=== PATIENT | female | born 1975 | race Caucasian/White ===

== ENCOUNTER 2016-12-03 23:53 | Emergency (ER) | payer OTHER, MEDICAID ==
[~2016-12-03] VITALS: Ht 165.1 cm; Wt 72.7 kg
[~2016-12-03 23:53] MED LIST: ACYCLOVIR800 MG PO; ADVIL200 MG OR; AMOXICILLIN500 MG PO; AMOXICILLIN875 MG OR; ATIVAN0.5 MG PO; BACLOFEN10 MG PO; BACTRIM DS1 TAB PO; BENTYL10 MG PO; BENZTROPINE1 MG OR; CEPHALEXIN500 MG OR; CEPHALEXIN500 MG PO; CIPRO500 MG OR; CIPROFLOXACN500 MG PO; CYCLOBENZAPR10 MG PO; DIABETA5 MG; FIORICET PO; FLEXERIL PO; FLEXERIL10 MG PO; FLUOXETINE40 MG PO; GLYBURIDE5 MG PO; IBUPROFEN600 MG PO; LEVAQUIN750 MG OR; LISINOPRIL10 MG PO; LISINOPRIL2.5 MG PO; LISINOPRIL20 M1; LISINOPRIL20 MG PO; LOMOTIL2.5 MG PO; LORTAB 1010 MG PO; LORTAB 5 OR; LORTAB 7.5-3251 TAB PO; LORTAB5 OR; MEDDOSEPAK OR; METFORMIN500 M1 PO; METFORMIN500 MG PO; MOBIC7.5 MG PO; NAPROSYN500 MG PO; NO HOME MEDICATIONS; NO HOME MEDS; ONDANSETRON4 MG PO; RISPERDAL1 M1 OR; ROBAXIN-750750 MG PO; TRAMADOL HCL50 MG PO; TRAZODONE50 MG PO; TYLENOL325 M1 RE; ULTRAM50 M1 PO; ULTRAM50 MG OR; ZANAFLEX2 MG PO; ZOFRAN ODT4 MG OR; ZOFRAN ODT4 MG PO; ZOVIRAX400 MG OR
[2016-12-04] MEDS ORDERED: PERCOCET 5/325M1 TAB PO (01:56)
[2016-12-04 02:25] VITALS: BP 138/74
== END 2016-12-04 02:25 | disposition home or self-care (01) | DRG 552 ==
LOC: ED 23:53
DX: S16.1XXA Strain of muscle, fascia and tendon at neck level, initial encounter (principal); E11.65 Type 2 diabetes mellitus with hyperglycemia; I10 Essential (primary) hypertension; S90.02XA Contusion of left ankle, initial encounter; F17.210 Nicotine dependence, cigarettes, uncomplicated; V49.40XA Driver injured in collision with unspecified motor vehicles in traffic accident, initial encounter; Z91.14 Patient's other noncompliance with medication regimen

== ENCOUNTER 2016-12-22 14:32 | Emergency (ER) | payer OTHER, MEDICAID ==
[~2016-12-22] VITALS: Ht 165.1 cm; Wt 72.7 kg
[~2016-12-22 14:32] MED LIST changes: +PERCOCET 5/325M1 TAB PO
[2016-12-22] MEDS ORDERED: ZOFRAN4 MG/TAB PO (16:58)
[2016-12-22 17:05] VITALS: BP 129/74
== END 2016-12-22 17:05 | disposition home or self-care (01) | DRG 392 ==
LOC: ED 14:32
DX: K52.9 Noninfective gastroenteritis and colitis, unspecified (principal); R11.2 Nausea with vomiting, unspecified

== ENCOUNTER 2017-01-05 12:10 | Emergency (ER) | payer OTHER, MEDICAID ==
[~2017-01-05] VITALS: Ht 165.1 cm; Wt 75.0 kg
[~2017-01-05 12:10] MED LIST changes: +ZOFRAN4 MG/TAB PO
[2017-01-05] MEDS ORDERED: MOTRIN800 MG PO (14:43)
[2017-01-05] MEDS ORDERED: PERCOCET 5/325M1 TAB PO (14:43)
[2017-01-05 14:54] VITALS: BP 142/97
== END 2017-01-05 14:55 | disposition home or self-care (01) | DRG 552 ==
LOC: ED 12:10
DX: M54.31 Sciatica, right side (principal); I10 Essential (primary) hypertension; M48.07 Spinal stenosis, lumbosacral region; E11.9 Type 2 diabetes mellitus without complications; F17.210 Nicotine dependence, cigarettes, uncomplicated

== ENCOUNTER 2017-02-01 09:19 | Emergency (ER) | payer OTHER, MEDICAID ==
[~2017-02-01] VITALS: Ht 165.1 cm; Wt 75.0 kg
[~2017-02-01 09:19] MED LIST changes: +MOTRIN800 MG PO
[2017-02-01] MEDS ORDERED: PREMARIN0.3 MG PO (09:28)
[2017-02-01] MEDS ORDERED: CELEBREX100 M1 PO (09:28)
[2017-02-01] MEDS ORDERED: GABAPENTIN300 M2 PO (09:57)
[2017-02-01] MEDS ORDERED: PERCOCET 5/325M1 TAB PO (09:57)
[2017-02-01 10:10] VITALS: BP 148/88
== END 2017-02-01 10:10 | disposition home or self-care (01) | DRG 556 ==
LOC: ED 09:19
DX: M79.652 Pain in left thigh (principal); I10 Essential (primary) hypertension; E11.9 Type 2 diabetes mellitus without complications; G89.29 Other chronic pain; M54.9 Dorsalgia, unspecified; F17.210 Nicotine dependence, cigarettes, uncomplicated

== ENCOUNTER 2017-04-10 10:40 | Emergency (ER) | payer OTHER, MEDICAID ==
[~2017-04-10] VITALS: Ht 165.1 cm; Wt 65.0 kg
[~2017-04-10 10:40] MED LIST changes: +CELEBREX100 M1 PO; +GABAPENTIN300 M2 PO; +PREMARIN0.3 MG PO
[2017-04-10 11:13] LABS: URINE BILIRUBIN - DIPSTICK NEGATIVE (NEGATIVE); URINE BLOOD DIPSTICK SMALL (NEGATIVE); URINE CLARITY CLOUDY; URINE COLOR YELLOW; URINE GLUCOSE - DIPSTICK >=1000 mg/dL (NEGATIVE); URINE KETONE TRACE mg/dL (NEGATIVE); URINE LEUK ESTERASE TRACE (NEGATIVE); URINE NITRITE - DIPSTICK POSITIVE (Negative); URINE PROTEIN - DIPSTICK NEGATIVE (NEG-TRACE); URINE SPECIFIC GRAVITY 1.025; URINE UROBILINOGEN - DIPSTICK 0.2 E.U./dL (0.2)
[2017-04-10 11:25] LABS: URINE BACTERIA MODERATE hpf; URINE RBC 50-100 RBC/hpf (0-5); URINE SQUAMOUS EPITHELIAL CELL FEW EPI/hpf (0-FEW)
[2017-04-10] MEDS ORDERED: CEPHALEXIN500 MG PO (11:40)
[2017-04-10 11:45] VITALS: BP 116/72
== END 2017-04-10 11:45 | disposition home or self-care (01) | DRG 690 ==
LOC: ED 10:40
PROVIDERS: Emergency Medicine
DX: N39.0 Urinary tract infection, site not specified (principal); I10 Essential (primary) hypertension; E11.9 Type 2 diabetes mellitus without complications; A60.00 Herpesviral infection of urogenital system, unspecified; B95.61 Methicillin susceptible Staphylococcus aureus infection as the cause of diseases classified elsewhere; G89.29 Other chronic pain; M54.9 Dorsalgia, unspecified; F17.210 Nicotine dependence, cigarettes, uncomplicated

== ENCOUNTER 2017-04-15 18:58 | Emergency (ER) | payer OTHER, MEDICAID ==
[~2017-04-15] VITALS: Ht 165.1 cm; Wt 55.0 kg
[2017-04-15 20:27] LABS: HEMOGLOBIN 15.7 g/dl (12.0-16.0); IMMATURE GRANULOCYTES 0.2 % (0.0-1.0); MEAN CELL VOLUME 84.9 fL CALC (80.0-100.0); MEAN CORPUSCULAR HGB 30.3 pG CALC (26.0-32.0); MEAN CORPUSCULAR HGB CONC 35.7 g/L CALC (32.0-36.0); NEUT# 6.43 thou/uL (2.00-7.15); RED BLOOD COUNT 5.18 mill/uL (4.20-5.60); RED CELL DISTRI WIDTH 12.1 % (11.5-15.5)
[2017-04-15 20:42] LABS: URINE BILIRUBIN - DIPSTICK NEGATIVE (NEGATIVE); URINE BLOOD DIPSTICK NEGATIVE (NEGATIVE); URINE CLARITY CLEAR; URINE COLOR YELLOW; URINE GLUCOSE - DIPSTICK >=1000 mg/dL (NEGATIVE); URINE KETONE NEGATIVE (NEGATIVE); URINE LEUK ESTERASE NEGATIVE (NEGATIVE); URINE NITRITE - DIPSTICK NEGATIVE (Negative); URINE PH 5.5 (4.5-8.0); URINE PROTEIN - DIPSTICK NEGATIVE (NEG-TRACE); URINE UROBILINOGEN - DIPSTICK 0.2 E.U./dL (0.2)
[2017-04-15 20:58] LABS: ALBUMIN 4.4 g/dL (3.2-5.0); ALKALINE PHOSPHATASE 99 u/l (38-126); ANION GAP 16 (6-22 (CALC)); BILIRUBIN, TOTAL 1.1 mg/dL (0.0-1.4); BUN 10 mg/dL (7-17); BUN/CREATININE RATIO 14 (12-20 (CALC)); CALCIUM 9.9 mg/dL (8.4-10.2); CARBON DIOXIDE 29 mmol/l (22-30); CHLORIDE 98 mmol/l (95-108); CREATININE 0.7 mg/dL (0.5-1.0); GFR > 60 ML/MIN (>=60 (CALC)); GFR FOR AFR.AMER. > 60 ML/MIN (>=60 (CALC)); GLUCOSE 400 mg/dL (65-105); POTASSIUM 3.8 mmol/l (3.5-5.1); SGOT/AST 17 u/l (14-36); SGPT/ALT 39 u/l (9-52); SODIUM 139 mmol/l (137-146); TOTAL PROTEIN 7.5 g/dL (6.3-8.2)
[2017-04-15 22:33] VITALS: BP 135/79
== END 2017-04-15 22:33 | disposition short-term general hospital (02) | DRG 93 ==
LOC: ED 18:58
PROVIDERS: Emergency Medicine
DX: R20.0 Anesthesia of skin (principal); M47.9 Spondylosis, unspecified; R53.1 Weakness; Z87.898 Personal history of other specified conditions

== ENCOUNTER 2017-08-15 01:18 | Emergency (ER) | payer OTHER, MEDICAID ==
[~2017-08-15] VITALS: Ht 182.9 cm; Wt 75.8 kg
[2017-08-15] MEDS ORDERED: GABAPENTIN100 MG PO (01:43)
[2017-08-15] MEDS ORDERED: MOTRIN200 MG PO (01:44)
[2017-08-15] MEDS ORDERED: HYDROCO/APAP1 TA9 PO (01:45)
[2017-08-15 02:16] LABS: URINE BILIRUBIN - DIPSTICK NEGATIVE (NEGATIVE); URINE BLOOD DIPSTICK NEGATIVE (NEGATIVE); URINE CLARITY CLEAR; URINE COLOR YELLOW; URINE GLUCOSE - DIPSTICK >=1000 mg/dL (NEGATIVE); URINE KETONE NEGATIVE (NEGATIVE); URINE LEUK ESTERASE NEGATIVE (NEGATIVE); URINE NITRITE - DIPSTICK NEGATIVE (Negative); URINE PROTEIN - DIPSTICK NEGATIVE (NEG-TRACE); URINE UROBILINOGEN - DIPSTICK 0.2 E.U./dL (0.2)
[2017-08-15 02:18] LABS: HEMATOCRIT 43.9 % (37.0-47.0); HEMOGLOBIN 15.8 g/dl (12.0-16.0); IMMATURE GRANULOCYTES 0.3 % (0.0-1.0); MEAN CELL VOLUME 84.9 fL CALC (80.0-100.0); MEAN CORPUSCULAR HGB 30.6 pG CALC (26.0-32.0); NEUT# 5.41 thou/uL (2.00-7.15); RED BLOOD COUNT 5.17 mill/uL (4.20-5.60)
[2017-08-15 02:28] LABS: ALBUMIN 4.4 g/dL (3.2-5.0); ALKALINE PHOSPHATASE 163 u/l (38-126); ANION GAP 18 (6-22 (CALC)); BILIRUBIN, TOTAL 0.5 mg/dL (0.0-1.4); BUN 13 mg/dL (7-17); BUN/CREATININE RATIO 24 (12-20 (CALC)); CALCIUM 9.9 mg/dL (8.4-10.2); CARBON DIOXIDE 22 mmol/l (22-30); CHLORIDE 102 mmol/l (95-108); CREATININE 0.5 mg/dL (0.5-1.0); GFR > 60 ML/MIN (>=60 (CALC)); GFR FOR AFR.AMER. > 60 ML/MIN (>=60 (CALC)); POTASSIUM 4.1 mmol/l (3.5-5.1); SGOT/AST 22 u/l (14-36); SGPT/ALT 39 u/l (9-52); SODIUM 138 mmol/l (137-146); TOTAL PROTEIN 7.2 g/dL (6.3-8.2)
[2017-08-15 02:32] LABS: GLUCOSE 485 mg/dL (65-105)
[2017-08-15] MEDS ORDERED: FLEXERIL PO (13:19)
[2017-08-15] MEDS ORDERED: MOTRIN800 MG PO (13:19)
[2017-08-15 13:34] VITALS: BP 149/95
== END 2017-08-15 13:57 | disposition home or self-care (01) | DRG 552 ==
LOC: ED 01:18
PROVIDERS: Emergency Medicine
DX: M54.6 Pain in thoracic spine (principal); M62.830 Muscle spasm of back; R06.02 Shortness of breath

== ENCOUNTER 2017-11-16 17:22 | Emergency (ER) | payer OTHER ==
[~2017-11-16] VITALS: Ht 165.1 cm; Wt 74.8 kg
[~2017-11-16 17:22] MED LIST changes: +GABAPENTIN100 MG PO; +HYDROCO/APAP1 TA9 PO; +MOTRIN200 MG PO
[2017-11-16] MEDS ORDERED: MOTRIN400 MG PO (18:08)
[2017-11-16] MEDS ORDERED: ULTRAM50 M1 PO (18:46)
[2017-11-16 18:48] VITALS: BP 134/88
== END 2017-11-16 18:55 | disposition home or self-care (01) | DRG 563 ==
LOC: ED 17:22
PROC: 2W3CX1Z Immobilization of Right Lower Arm using Splint (ICD-10-PCS; principal; 2017-11-16)
DX: S62.001A Unspecified fracture of navicular [scaphoid] bone of right wrist, initial encounter for closed fracture (principal); F17.210 Nicotine dependence, cigarettes, uncomplicated; X58.XXXA Exposure to other specified factors, initial encounter

== ENCOUNTER 2017-11-24 07:27 | Emergency (ER) | payer OTHER ==
[~2017-11-24] VITALS: Ht 165.1 cm; Wt 75.0 kg
[~2017-11-24 07:27] MED LIST changes: +MOTRIN400 MG PO
[2017-11-24 07:59] VITALS: BP 148/90
== END 2017-11-24 07:59 | disposition home or self-care (01) | DRG 561 ==
LOC: ED 07:27
PROC: 2W3JX1Z Immobilization of Right Finger using Splint (ICD-10-PCS; principal; 2017-11-24)
DX: S62.001D Unspecified fracture of navicular [scaphoid] bone of right wrist, subsequent encounter for fracture with routine healing (principal)

== ENCOUNTER 2018-06-19 18:01 | Emergency (ER) | payer OTHER ==
[~2018-06-19] VITALS: Ht 165.1 cm; Wt 70.0 kg
[2018-06-19] MEDS ORDERED: CARVEDILOL6.25 MG PO (18:13)
[2018-06-19] MEDS ORDERED: LISINOPRIL20 MG PO (18:14)
[2018-06-19] MEDS ORDERED: TRULICITY0.75 MG/0. SC (18:15)
[2018-06-19] MEDS ORDERED: BACTROBAN TOP (19:23)
[2018-06-19 19:51] VITALS: BP 138/72
== END 2018-06-19 19:52 | disposition home or self-care (01) | DRG 607 ==
LOC: ED 18:01
DX: S30.861A Insect bite (nonvenomous) of abdominal wall, initial encounter (principal); S40.862A Insect bite (nonvenomous) of left upper arm, initial encounter; S40.861A Insect bite (nonvenomous) of right upper arm, initial encounter; L29.9 Pruritus, unspecified; W57.XXXA Bitten or stung by nonvenomous insect and other nonvenomous arthropods, initial encounter; Y93.89 Activity, other specified; Y92.009 Unspecified place in unspecified non-institutional (private) residence as the place of occurrence of the external cause

== ENCOUNTER 2018-06-27 10:11 | Emergency (ER) | payer OTHER ==
[~2018-06-27] VITALS: Ht 165.1 cm; Wt 70.5 kg
[~2018-06-27 10:11] MED LIST changes: +BACTROBAN TOP; +CARVEDILOL6.25 MG PO; +TRULICITY0.75 MG/0. SC
[2018-06-27] MEDS ORDERED: LISINOP/HCTZ1 TA1 PO (11:10)
[2018-06-27] MEDS ORDERED: CRESTOR20 MG PO (11:11)
[2018-06-27] MEDS ORDERED: ASPIRIN81 MG PO (11:12)
[2018-06-27 12:03] LABS: HEMATOCRIT 45.8 % (37.0-47.0); HEMOGLOBIN 16.4 g/dl (12.0-16.0); IMMATURE GRANULOCYTES 0.4 % (0.0-5.0); MEAN CELL VOLUME 85.1 fL CALC (80.0-100.0); MEAN CORPUSCULAR HGB 30.5 pG CALC (26.0-32.0); MEAN CORPUSCULAR HGB CONC 35.8 g/L CALC (32.0-36.0); NEUT# 5.63 thou/uL (2.00-7.15); RED BLOOD COUNT 5.38 mill/uL (4.20-5.60); RED CELL DISTRI WIDTH 11.9 % (11.5-15.5)
[2018-06-27 12:05] LABS: INFLUENZA A POSITIVE (NONE DETECT); INFLUENZA B NONE DETECTED (NONE DETECT)
[2018-06-27 12:14] LABS: ALBUMIN 4.3 g/dL (3.2-5.0); ALKALINE PHOSPHATASE 82 u/l (38-126); ANION GAP 17 (6-22 (CALC)); BILIRUBIN, TOTAL 0.7 mg/dL (0.0-1.4); BUN 18 mg/dL (7-17); BUN/CREATININE RATIO 28 (12-20 (CALC)); CARBON DIOXIDE 28 mmol/l (22-30); CHLORIDE 95 mmol/l (95-108); CREATININE 0.6 mg/dL (0.5-1.0); GFR > 60 ML/MIN (>=60 (CALC)); GFR FOR AFR.AMER. > 60 ML/MIN (>=60 (CALC)); POTASSIUM 4.1 mmol/l (3.5-5.1); SGOT/AST 26 u/l (14-36); SODIUM 136 mmol/l (137-146); TOTAL PROTEIN 7.2 g/dL (6.3-8.2)
[2018-06-27] MEDS ORDERED: TAM75CAP PO (12:21)
[2018-06-27] MEDS ORDERED: ONDANSETRON4 MG PO (12:21)
[2018-06-27 13:21] VITALS: BP 114/69
== END 2018-06-27 13:21 | disposition home or self-care (01) | DRG 195 ==
LOC: ED 10:11
PROVIDERS: Emergency Medicine
DX: J10.1 Influenza due to other identified influenza virus with other respiratory manifestations (principal); R11.2 Nausea with vomiting, unspecified; R51 Headache; R50.9 Fever, unspecified

== ENCOUNTER 2018-11-19 16:15 | Emergency (ER) | payer OTHER ==
[~2018-11-19] VITALS: Ht 165.1 cm; Wt 70.0 kg
[~2018-11-19 16:15] MED LIST changes: +ASPIRIN81 MG PO; +CRESTOR20 MG PO; +LISINOP/HCTZ1 TA1 PO; +TAM75CAP PO
[2018-11-19] MEDS ORDERED: ENTRESTO 97-1031 TAB PO (16:40)
[2018-11-19] MEDS ORDERED: TOPROL XL25 M1 PO (16:42)
[2018-11-19 17:17] LABS: IMMATURE GRANULOCYTES 0.1 % (0.0-5.0); MEAN CELL VOLUME 84.2 fL CALC (80.0-100.0); MEAN CORPUSCULAR HGB 29.4 pG CALC (26.0-32.0); MEAN CORPUSCULAR HGB CONC 34.9 g/L CALC (32.0-36.0); NEUT# 5.31 thou/uL (2.00-7.15); RED BLOOD COUNT 4.87 mill/uL (4.20-5.60); RED CELL DISTRI WIDTH 12.5 % (11.5-15.5)
[2018-11-19 17:18] LABS: HEMOGLOBIN 14.3 g/dl (12.0-16.0)
[2018-11-19 17:35] LABS: ANION GAP 14 (6-22 (CALC)); BUN 12 mg/dL (7-17); BUN/CREATININE RATIO 31 (12-20 (CALC)); CARBON DIOXIDE 25 mmol/l (22-30); CHLORIDE 103 mmol/l (95-108); CREATININE 0.4 mg/dL (0.5-1.0); GFR > 60 ML/MIN (>=60 (CALC)); GFR FOR AFR.AMER. > 60 ML/MIN (>=60 (CALC)); POTASSIUM 3.8 mmol/l (3.5-5.1); SODIUM 138 mmol/l (137-146)
[2018-11-19 18:43] LABS: URINE BILIRUBIN - DIPSTICK NEGATIVE (NEGATIVE); URINE BLOOD DIPSTICK NEGATIVE (NEGATIVE); URINE COLOR YELLOW; URINE GLUCOSE - DIPSTICK >=1000 mg/dL (NEGATIVE); URINE KETONE NEGATIVE (NEGATIVE); URINE LEUK ESTERASE NEGATIVE (NEGATIVE); URINE NITRITE - DIPSTICK NEGATIVE (Negative); URINE PH 5.5 (4.5-8.0); URINE PROTEIN - DIPSTICK NEGATIVE (NEG-TRACE); URINE UROBILINOGEN - DIPSTICK 0.2 E.U./dL (0.2)
[2018-11-19 19:00] VITALS: BP 130/72
== END 2018-11-19 19:00 | disposition home or self-care (01) | DRG 948 ==
LOC: ED 16:15
PROVIDERS: Family Medicine
DX: R53.83 Other fatigue (principal); I42.9 Cardiomyopathy, unspecified; R94.31 Abnormal electrocardiogram [ECG] [EKG]; R60.0 Localized edema; R00.2 Palpitations; Z95.0 Presence of cardiac pacemaker; I10 Essential (primary) hypertension

== ENCOUNTER 2018-11-25 09:56 | Emergency (ER) | payer OTHER ==
[~2018-11-25] VITALS: Ht 165.1 cm; Wt 70.0 kg
[~2018-11-25 09:56] MED LIST changes: +ENTRESTO 97-1031 TAB PO; +TOPROL XL25 M1 PO
[2018-11-25] MEDS ORDERED: CARVEDILOL6.25 MG PO (10:12)
[2018-11-25] MEDS ORDERED: HYDROCORT2.52 EX (10:20)
[2018-11-25 10:25] VITALS: BP 138/97
== END 2018-11-25 10:25 | disposition home or self-care (01) | DRG 607 ==
LOC: ED 09:56
DX: L25.9 Unspecified contact dermatitis, unspecified cause (principal); E11.9 Type 2 diabetes mellitus without complications; I10 Essential (primary) hypertension

== ENCOUNTER 2020-07-24 11:36 | Emergency (ER) | payer OTHER ==
[~2020-07-24] VITALS: Ht 165.1 cm; Wt 68.2 kg
[~2020-07-24 11:36] MED LIST changes: +HYDROCORT2.52 EX
[2020-07-24 12:04] LABS: HEMOGLOBIN 15.3 g/dl (12.0-16.0); IMMATURE GRANULOCYTES 0.2 % (0.0-5.0); MEAN CELL VOLUME 83.7 fL CALC (80.0-100.0); MEAN CORPUSCULAR HGB 29.8 pG CALC (26.0-32.0); MEAN CORPUSCULAR HGB CONC 35.6 g/dL CAL (32.0-36.0); NEUT# 3.93 thou/uL (2.00-7.15); RED BLOOD COUNT 5.14 mill/uL (4.20-5.60); RED CELL DISTRI WIDTH 12.2 % (11.5-15.5)
[2020-07-24 12:24] LABS: ACT PARTIAL THROMBO TIME 22.4 SECONDS (20.0-32.5); INTERNATIONAL NORMALIZED RATIO 0.9 RATIO (0.7-1.3); PROTHROMBIN TIME 9.4 SECONDS (9.0-12.5)
[2020-07-24 13:07] LABS: ALBUMIN 4.1 g/dL (3.2-5.0); ALKALINE PHOSPHATASE 104 u/l (38-126); ANION GAP 13 (6-22 (CALC)); BILIRUBIN, TOTAL 0.6 mg/dL (0.0-1.4); BUN 16 mg/dL (7-17); BUN/CREATININE RATIO 36 (12-20 (CALC)); CARBON DIOXIDE 25 mmol/l (22-30); CHLORIDE 105 mmol/l (95-108); CREATININE 0.4 mg/dL (0.5-1.0); GFR > 60 ML/MIN (>=60 (CALC)); GFR FOR AFR.AMER. > 60 ML/MIN (>=60 (CALC)); SGOT/AST 20 u/l (14-36); SODIUM 138 mmol/l (137-146); TOTAL PROTEIN 6.8 g/dL (6.3-8.2)
[2020-07-24 18:08] VITALS: BP 139/90
== END 2020-07-24 18:09 | disposition short-term general hospital (02) | DRG 309 ==
LOC: ED 11:36
PROVIDERS: Student in an Organized Health Care Education/Training Program
DX: I47.1 Supraventricular tachycardia (principal); I42.8 Other cardiomyopathies; E11.9 Type 2 diabetes mellitus without complications; I10 Essential (primary) hypertension; Z95.810 Presence of automatic (implantable) cardiac defibrillator; Z20.828 Contact with and (suspected) exposure to other viral communicable diseases

== ENCOUNTER 2021-02-13 22:44 | Inpatient (IN) | payer OTHER ==
[~2021-02-13] VITALS: Ht 165.1 cm; Wt 64.0 kg
[2021-02-13 23:19] LABS: HEMATOCRIT 45.7 % (37.0-47.0); HEMOGLOBIN 15.6 g/dl (12.0-16.0); IMMATURE GRANULOCYTES 0.5 % (0.0-5.0); MEAN CELL VOLUME 86.1 fL CALC (80.0-100.0); MEAN CORPUSCULAR HGB 29.4 pG CALC (26.0-32.0); MEAN CORPUSCULAR HGB CONC 34.1 g/dL CAL (32.0-36.0); NEUT# 7.83 thou/uL (2.00-7.15); RED BLOOD COUNT 5.31 mill/uL (4.20-5.60); RED CELL DISTRI WIDTH 11.9 % (11.5-15.5)
--- NOTE | 2021-02-13 23:27 | NUR ---
PT. TO ROOM 10 VIA EMS WITH C/O EMS BEING CALLED TO HOME FOR N/V X 3 DAYS. PT. IS UNRESPONSIVE OF THIS TIME, V/S STABLE. PT. CONT TO WRETCH.
[2021-02-13 23:28] LABS: ALBUMIN 4.3 g/dL (3.2-5.0); ALKALINE PHOSPHATASE 70 u/l (38-126); ANION GAP 22 (6-22 (CALC)); BUN 22 mg/dL (7-17); BUN/CREATININE RATIO 41 (12-20 (CALC)); CARBON DIOXIDE 20 mmol/l (22-30); CHLORIDE 98 mmol/l (95-108); CREATININE 0.5 mg/dL (0.5-1.0); ETHYL ALCOHOL 0 mg/dl (0-30); GFR > 60 ML/MIN (>=60 (CALC)); GFR FOR AFR.AMER. > 60 ML/MIN (>=60 (CALC)); POTASSIUM 3.8 mmol/l (3.5-5.1); SGOT/AST 23 u/l (14-36); SODIUM 137 mmol/l (137-146); TOTAL PROTEIN 7.4 g/dL (6.3-8.2)
[2021-02-13 23:29] LABS: BILIRUBIN, TOTAL 1.1 mg/dL (0.0-1.4)
[2021-02-13 23:40] LABS: MYOGLOBIN 24 ng/mL (0 - 62)
[2021-02-13] MEDS ORDERED: GABAPENTIN100 MG PO ×2 (23:57)
[2021-02-13] MEDS ORDERED: METFORMIN500 M2 PO (23:58)
--- NOTE | 2021-02-14 00:27 | NUR ---
PT. NOW ANSWERING SIMPLE QUESTIONS, AND FOLLOWING SIMPLE COMMANDS. SO AT BEDSIDE.
[2021-02-14 00:32] LABS: URINE BILIRUBIN - DIPSTICK NEGATIVE (NEGATIVE); URINE BLOOD DIPSTICK TRACE-INTACT (NEGATIVE); URINE COLOR YELLOW; URINE GLUCOSE - DIPSTICK 500 mg/dL (NEGATIVE); URINE KETONE >=80 mg/dL (NEGATIVE); URINE LEUK ESTERASE NEGATIVE (NEGATIVE); URINE NITRITE - DIPSTICK NEGATIVE (Negative); URINE PH 5.5 (4.5-8.0); URINE PROTEIN - DIPSTICK 30 mg/dL (NEG-TRACE); URINE SPECIFIC GRAVITY >=1.030; URINE UROBILINOGEN - DIPSTICK 0.2 E.U./dL (0.2)
[2021-02-14 00:43] LABS: URINE BACTERIA FEW hpf; URINE SQUAMOUS EPITHELIAL CELL FEW EPI/hpf (0-FEW); URINE YEAST FEW hpf
--- NOTE | 2021-02-14 01:42 | NUR ---
IN ROOM TO DISCUSS CLINICAL FINDINGS WITH PT. AND SO.
--- NOTE | 2021-02-14 02:02 | NUR ---
PT. CONT. RIP STEVENSON MD AWARE.
--- NOTE | 2021-02-14 02:21 | NUR ---
Admission Note Report Given to: FREEDOM AVILA Transported by: Wheelchair X Stretcher Transported with: Nurse Transporter X Patent IV O2 Medical Record Librarians Teacher Location: ICU X [facility]
--- NOTE | 2021-02-14 02:30 | NUR ---
PT. TAKEN TO NM FLOOR VIA STRETCHER.
[2021-02-14 02:45] VITALS: BP 127/77
--- NOTE | 2021-02-14 03:19 | NUR ---
PT ARRIVED TO THE UNIT VIA STRETCHER ESCORTED BY ER STAFF. PT IS VERY LETHARGIC, WAKES UPON TOUCH OR VOICE BUT DOES NOT STAY AWAKE TO COMPLETE REQUIRED ADMISSION ASSESSMENTS. MULTIPLE ATTEMPTS TO WAKE PT TO ASSIST WITH ADMISSION, PT NOT WILLING TO PARTTICIPATE. ADMISSION COMPLETED WITH INFORMATION AVAILBLE FROM MEDICAL RECORDS AND NURSING REPORT. PT NOTED TO BEGIN VOMMITTING AGAIN WITHIN THE FIRST 15MIN TO THE FLOOR. PT WAS JUST ADMINSTERED COMPAZINE DOWNSTAIRS IN THE ER. COMPLETE BED CHANGE DONE, WILL MONITOR FOR CONTINUED NAUSEA AND VOMITTING. VS WNL AT THIS TIME. NO S/S OF DISTRESS NOTED, NO COMPLAINTS VOICED. WILL CONTINUE TO MONITOR-
[2021-02-14 03:40] VITALS: BP 135/88
--- NOTE | 2021-02-14 04:28 | NUR ---
PT REWSTING QUIETLY IN BED AT THIS TIME ON HER LEFT SIDE. PT HAS A EMESIS BAG AVAILBLE, HOB ELEVATED AT 45 DEGRESS TO DECREASE RISK FOR ASPIRATION IN THE EVENT PT VOMITS AGAIN. SINCE LAST VOMITTING EPISODE PT HAS HAD A SINGLE EPISODE OF DRY HEAVING AND NOT PRODUCING ANY VOMIT. BREATHING IS EVEN AND UNLABORED. IV TO LEFT WRIST CONTINUES RUNNING 125ML/HR NS. PT TOLERATES WELL. SAFETY PRECAUTIONS IN PLACE, BED IN LOWEST POSITION, CALL LIGHT WITHIN REACH. BED ALARM ACTIVATED FOR SAFETY. ALL NEEDS MET AT THIS TIME. WILL MONITOR
[2021-02-14 05:48] LABS: ANION GAP 16 (6-22 (CALC)); BUN 20 mg/dL (7-17); BUN/CREATININE RATIO 44 (12-20 (CALC)); CARBON DIOXIDE 23 mmol/l (22-30); CHLORIDE 102 mmol/l (95-108); CREATININE 0.5 mg/dL (0.5-1.0); GFR > 60 ML/MIN (>=60 (CALC)); GFR FOR AFR.AMER. > 60 ML/MIN (>=60 (CALC)); POTASSIUM 3.3 mmol/l (3.5-5.1); SODIUM 138 mmol/l (137-146)
--- NOTE | 2021-02-14 06:04 | NUR ---
PT REQUESTED A CUP OF ICE APPROXIMATLY 45-60MIN AGO, SINCE ICE CONSUMPTION PT HAS NOT HAD ANY DRY HEAVING/VOMITTING AND HAS NOT HAD ANY BOUGHTS OF NAUSEA. WILL CONTINUE TO MONITOR
[2021-02-14 06:40] LABS: CALCULATED LDLCHOLESTEROL 54 mg/dL (62-129 (CALC)); CHOLESTEROL HDL RATIO 2.5 (<4.4 (CALC)); HDL CHOLESTEROL 48 mg/dL (>=40); MAGNESIUM 1.8 mg/dL (1.6-2.3); TOTAL TRIGLYCERIDES 99 mg/dl (30-149); VLDL CHOLESTROL 20 mg/dl (1-41 (CALC))
[2021-02-14 06:43] LABS: TOTAL CHOLESTEROL 122 mg/dl (0-199)
[2021-02-14 07:15] VITALS: BP 111/67
--- NOTE | 2021-02-14 07:15 | NUR ---
ASSESSMENT IS COMPLTED: IV SITE IS FREE FROM REDNESS OR EDEMA. HR IS REG,PULSES ARE STRONG X4, ABD IS SOFT WITH ACTIVE BS. BREATH SOUNDS ARE CLEAR, BILATERALLY. PT REFUSED THE INSULIN. AND ALSO HAS BEEN VOMITING UNABLE TO GIVE POTASSIUM AT THIS TIME. PT LIKES TO KEEP HER EYES CLOSED AND MINIMAL ANSWERS GIVEN. CONTINUE TO OBSERVE AND MONITOR.
--- NOTE | 2021-02-14 08:57 | NUR ---
PT IS CURRENTLY RESTING WITH EYES CLOSED. IV SITE IS FREE FROM REDNESS OR EDEMA.
--- NOTE | 2021-02-14 10:56 | NUR ---
SPOKE WITH THE FAMILY. RE: PT RESTING. INQUIRED ABOUT MEDICATION. EXPLAINED HER STOMACH NEEDS TO CALM BEFORE GETTING THE MEDICATIONS SO THAT SHE DOESNOT THROW THEM BACK UP. VERBALIZED UNDERSTANDING.
--- NOTE | 2021-02-14 12:15 | NUR ---
PT IS RELAXING IN BED WITH NO DISTRESS NOTED.IV SITE IS FREE FROM REDNESS OR EDEMA. CONTINUE TO OBSERVE AND MONITOR.
--- NOTE | 2021-02-14 12:30 | NUR ---
PT IS MORE ALERT AND ABLE TO TOLERATE HER MEDICATIONS ABLE TO DRINK APPLE JUICE.
--- NOTE | 2021-02-14 13:44 | NUR ---
PT AND SPOUSE HAVING MULTIPLE C/O TREATMENT IN ER, SENIOR FRONT END DEVELOPER IS AWARE AND AT BEDSIDE. SPEAKING WITH PT AND SPOUSE.
[2021-02-14 15:05] VITALS: BP 138/83
--- NOTE | 2021-02-14 16:15 | NUR ---
PTIS RELAXING IN BED WITH NO DISTRESS NOTED. IV SITE IS FREE FROM REDNESS OR EDEMA.
--- NOTE | 2021-02-14 17:58 | NUR ---
SPOKE WITH SPOUSE RE: BLOOD SUGARS AND INSULIN. PT DOESN'T WANT THE INSULIN "HAD A BAD EXPERIENCE WITH THE INSULIN AND THE SUGAR WENT TOO LOW". PT IS USED TO BEING VERY HIGH AT HOME WITH BLOOD SUGARS/.
[2021-02-14 20:00] VITALS: BP 126/73
--- NOTE | 2021-02-14 20:05 | NUR ---
PT AWAKE WITH CLEAR LIQUID FOOD TRAY IN FRONT OF HER. REPORTS HAVING ONLY TAKEN 4 SIPS OF BROTH AND SMALL AMOUNT OF APPLEJUICE. DENIES NAUSEA OR PAIN AT THIS TIME. CALL LIGHT AT SIDE AND PT ENCOURAGED TO CALL NEEDS ARISE. POC DISCUSSED, VERBALIZED UNDERSTANDING. IS AT BEDSIDE, INFORMED HIM THAT VISITING HOURS ARE OVER AND THAT HE WOULD NEED TO BE LEAVING SOON, VERBALIZED UNDERSTANDING.
--- NOTE | 2021-02-14 20:35 | NUR ---
PT CALLED TO REPORT THAT THE PT WAS NAUSIOUS AGAIN. PT MEDICATED FOR NAUSEA AND ADVISED I WOULD COME BACK TO ADMINISTER HER PO MEDICATIONS AFTER THE NAUSEA MEDICATION HAD A CHANCE TO WORK. PT REFUSED TO PROVIDE ARM BAND FOR SCANNING, I HAD TO ASK TWICE, SHE THEN DID NOT WANT TO COOPERATE FOR ASSESSMENT, FINALLY ABLE TO LISTEN PARTIALLY TO LUNGS AND ABD. HYPER BOWEL SOUNDS AUSCULTATED TO ALL 4 QUADRANTS OF ABD. I ADVISED THAT SECURITY ASKED FOR THE UNIT TO BE CLEARED OF ALL VISITORS DUE TO IT BEING PAST VISITATION TIME, HER REPLIED "I WILL LEAVE SOON, I WANTED TO WAIT FOR HER TO GET HER MEDS." PT APPEARS VERY GROGGY. MED PEDS IN THE ROOM TO OBTAIN ACCU-CHECK, PT FLINTCHED AND CRIED GRABBING HUSBANDS ARM UPON ACCU-CHECK STICK. I ASKED IF THERE WAS ANYTHING ELSE WE COULD PROVIDED HER FOR COMFORT, SHE DID NOT ANSWER.
--- NOTE | 2021-02-15 01:09 | NUR ---
PT APPEARS TO BE SLEEPING, RESP EVEN AND NON-LABORED. PT DID NOT AWAKE TO MY ENTERING ROOM. NO S/O DISTRESS NOTED AT THIS TIME.
--- NOTE | 2021-02-15 03:47 | NUR ---
PT SLEEPING, NO S/O DISTRESS. RESP EVEN AND NON-LABORED. PT AWOKE SLIGHTLY AND RETURNED BACK TO SLEEP PRIOR TO MY LEAVING ROOM. ANTIBIOTIC THERAPY ADMINISTERED AT THIS TIME.
[2021-02-15 04:00] VITALS: BP 128/75
[2021-02-15 05:05] LABS: IMMATURE GRANULOCYTES 0.2 % (0.0-5.0); MEAN CELL VOLUME 85.3 fL CALC (80.0-100.0); MEAN CORPUSCULAR HGB 30.3 pG CALC (26.0-32.0); MEAN CORPUSCULAR HGB CONC 35.5 g/dL CAL (32.0-36.0); NEUT# 7.39 thou/uL (2.00-7.15); RED BLOOD COUNT 4.23 mill/uL (4.20-5.60)
[2021-02-15 05:14] LABS: ALKALINE PHOSPHATASE 45 u/l (38-126); ANION GAP 13 (6-22 (CALC)); BILIRUBIN, TOTAL 0.7 mg/dL (0.0-1.4); BUN 18 mg/dL (7-17); BUN/CREATININE RATIO 37 (12-20 (CALC)); CARBON DIOXIDE 24 mmol/l (22-30); CHLORIDE 104 mmol/l (95-108); CREATININE 0.5 mg/dL (0.5-1.0); GFR > 60 ML/MIN (>=60 (CALC)); GFR FOR AFR.AMER. > 60 ML/MIN (>=60 (CALC)); POTASSIUM 3.2 mmol/l (3.5-5.1); SGOT/AST 19 u/l (14-36); SODIUM 138 mmol/l (137-146)
[2021-02-15 05:18] LABS: ALBUMIN 3.1 g/dL (3.2-5.0); TOTAL PROTEIN 5.4 g/dL (6.3-8.2)
[2021-02-15 05:19] LABS: HEMATOCRIT 36.1 % (37.0-47.0); HEMOGLOBIN 12.8 g/dl (12.0-16.0)
[2021-02-15 07:45] VITALS: BP 140/77
--- NOTE | 2021-02-15 07:45 | NUR ---
ASSESSMENT IS COMPLETED: IV SITE IS FREE FROM REDNESS OR EDEMA. HR IS REG,PULSES ARE STRONG X4, ABD IS SOFT WITH ACTIVE BS. BREATH SOUNDS ARE CLEAR,BILATERALLY. CONTINUE TO OBSERVE AND MONITOR.
--- NOTE | 2021-02-15 12:00 | NUR ---
PT HAS BEEN IN THE CHAIR. REQUESTED REGULAR FOOD. IV SITE IS FREE FROM REDNESS OR EDEMA. CONTINUE TO OBSERVE AND MONITOR.
[2021-02-15 15:05] VITALS: BP 116/69
--- NOTE | 2021-02-15 16:00 | NUR ---
PT IS RELAXING IN BED WITH NO DISTRESS NOTED. NO NAUSEA OR VOMITING. FAMILY VISITED PT EARLIER. CONTINUE TO OSBERVE AND MONITOR.
--- NOTE | 2021-02-15 19:16 | NUR ---
RECEIVED REPORT FROM NURSE CONTRERAS, PATIENT SITTING IN BED, WATCHING TV, BREATHING UNLABORED, PATIENT ASSISTED TO THE BATHROOM AT THIS TIME, WILL CONTINUE TO MONITOR.
[2021-02-15 19:40] VITALS: BP 127/83
--- NOTE | 2021-02-15 20:00 | NUR ---
PATIENT ALERT ORIENTED ABLE TO MAKE NEEDS KNONW, WITH IV NS @ 10CC/HR INFUSING WEEL ON LEFT WRIST, LUNG SOUNDS CLEAR HYPERACTIVE BOWEL SOUNDS, DENIES PAIN AT THIS TIME, BREATHING EVEN UNLABORED CALL LIGHT AT REACH.
--- NOTE | 2021-02-16 00:04 | NUR ---
PATIENT AWAKE, ASSISTED TO BATHROOM, PATIENT STILL HAVING LOOSE WATERY STOOL,FLUIDS ENCOURAGED, WILL CONTINUE TO MONITOR.
[2021-02-16 03:14] VITALS: BP 149/90
--- NOTE | 2021-02-16 03:15 | NUR ---
PATIENT IS RESTING IN BED, NO DISCOMFORTS NOTED AT THIS TIME, BREATHING EVEN UNL;ABORED CALL LIGHT IN REACH.
--- NOTE | 2021-02-16 04:00 | NUR ---
TECH IN ROOM, ATTEMPTING TO OBTAIN BLOOD SPECIMEN, PATIENT ARM JERK, BLOOD DRAW UNSUCCESSFUL, NEXT TECH WILL ATTEMPT TO OBTAIN SPECIMEN.
--- NOTE | 2021-02-16 07:00 | NUR ---
REPORT RECEIVED FROM PRIMO KRISHNAMURTHY
[2021-02-16 07:34] VITALS: BP 160/89
--- NOTE | 2021-02-16 07:35 | NUR ---
PT RESTING IN SEMI FOWLERS POSITION,A&O X3;VS OBTAINED AND ASSESSMENT COMPLETED;PT REPORTS NAUSEA AND REQUESTS PRN ANTIEMETIC, PT MEDICATED WITH PRN ZOFRAN 4MG IVP;PT DENIES ANY CURRENT PAIN OR DISCOMFORTS,PAIN SCALE AND REPORTING EDUCATED;RESPIRATIONS EVEN AND UNLABORED ON RA,CLEAR LUNG SOUNDS;ABDOMEN SOFT ON PALPATION AND HYPERACTIVE IN ALL 4 QUADRANTS;STRONG PEDAL PULSES;SKIN INTACT;#20G TO LW INFUSING NS WITH EASE PER ORDER,SITE APPEARS HEALTHY;ACCUCHECK 237,PT COVERED WITH SLIDING SCALE INSULIN PER ORDER;PT DENIES ANY ADDITIONAL NEEDS AND IS ENCOURAGED TO CALL FOR ASSISTANCE IF NEEDED;FALL PRECAUTIONS IN PLACE WITH BED IN THE LOWEST POSITION AND CALL LIGHT IN REACH;WILL CONTINUE TO MONITOR
--- NOTE | 2021-02-16 08:15 | NUR ---
PT DRY HEAVING IN RESTROOM, REPORTING ZOFRAN UNEFFECTIVE;PT MEDICATED WITH PRN PHENERGAN 12.5MG SLOW IVP;WILL CONTINUE TO MONITOR FOR EFFECTIVENESS
--- NOTE | 2021-02-16 09:28 | NUR ---
AND AT BEDSIDE DISCUSSING POC.
--- NOTE | 2021-02-16 10:30 | NUR ---
PT RESTING IN SEMI FOWLERS POSITION;RESPIRATIONS EVEN AND UNLABORED ON RA;PT REMAINS DRY HEAVING AT TIMES;IV FLUIDS INFUSING WITH EASE TO LW @ 75ML/HR;ACCUCHECK 230,PT COVERED WITH SLIDING SCALE INSULIN PER ORDER;PT DENIES ANY ADDITIONAL NEEDS;ENCOURAGED TO CALL FOR ASSISTANCE IF NEEDED;FALL PRECAUTIONS REMAIN IN PLACE WITH CALL LIGHT IN REACH;WILL CONTINUE TO MONITOR
--- NOTE | 2021-02-16 10:31 | NUR ---
LAB AT BEDSIDE
[2021-02-16 10:53] LABS: IMMATURE GRANULOCYTES 0.1 % (0.0-5.0); MEAN CELL VOLUME 83.5 fL CALC (80.0-100.0); MEAN CORPUSCULAR HGB 29.9 pG CALC (26.0-32.0); MEAN CORPUSCULAR HGB CONC 35.8 g/dL CAL (32.0-36.0); NEUT# 5.76 thou/uL (2.00-7.15); RED BLOOD COUNT 5.15 mill/uL (4.20-5.60); RED CELL DISTRI WIDTH 11.7 % (11.5-15.5)
[2021-02-16 11:01] LABS: HEMOGLOBIN 15.4 g/dl (12.0-16.0)
[2021-02-16 11:04] LABS: ALKALINE PHOSPHATASE 62 u/l (38-126); ANION GAP 14 (6-22 (CALC)); BILIRUBIN, TOTAL 0.9 mg/dL (0.0-1.4); BUN 10 mg/dL (7-17); BUN/CREATININE RATIO 22 (12-20 (CALC)); CARBON DIOXIDE 25 mmol/l (22-30); CHLORIDE 102 mmol/l (95-108); CREATININE 0.5 mg/dL (0.5-1.0); GFR > 60 ML/MIN (>=60 (CALC)); GFR FOR AFR.AMER. > 60 ML/MIN (>=60 (CALC)); SGOT/AST 24 u/l (14-36); SODIUM 138 mmol/l (137-146); TOTAL PROTEIN 6.9 g/dL (6.3-8.2)
[2021-02-16 12:43] VITALS: BP 167/83
--- NOTE | 2021-02-16 12:43 | NUR ---
RAPID RESPONSE CALLED FROM ER AT 1243 ALONG WITH CODE ROQUE FROM ER PT FOUND SLEEPING ON STOMACH,DROWSY.RESPIRATIONS EVEN AND UNLABORED ON RA.NO S/S OF DISTRESS NOTED.VS OBTAINED AND WNL. PT GUARDED AT TIMES AND DOES NOT EASILY ANSWER QUESTIONS. 1247: RAPID RESPONSE CLEARED. PRIMO GILLESPIE/HEEL BUILDER AT BEDSIDE PT REPORTS NAUSEA AND PAIN, CALL TO BE PLACED TO REGARDING PAIN MEDICATION AND PRN ZOFRAN TO BE ADMINISTERED.
--- NOTE | 2021-02-16 12:58 | NUR ---
NEW ORDERS RECEIVED FROM .
--- NOTE | 2021-02-16 13:02 | NUR ---
PT MEDICATED WITH PRN ZOFRAN 4MG IVP FOR NAUSEA AT THIS TIME.
--- NOTE | 2021-02-16 13:18 | NUR ---
PT MEDICATED WITH X1 MORPHINE 2MG SLOW IVP FOR ABDOMINAL PAIN.WILL CONTINUE TO MONITOR FOR EFFECTIVENESS
--- NOTE | 2021-02-16 13:45 | NUR ---
PT REPORTS IV POTASSIUM BURNING. SITE FLUSHED AND PATENT;NEW #22G TO RW STARTED ON 1ST ATTEMPT BY PRIMO PADILLA.
--- NOTE | 2021-02-16 13:50 | NUR ---
MOTHER AT BEDSIDE
--- NOTE | 2021-02-16 13:55 | NUR ---
PT APPEARS TO BE SLEEPING, ANSWERS TO VERBAL STIMULI;PT REPORTS PAIN HAS DECREASED TO 5/10 ON THE PAIN SCALE AND ZOFRAN IS STARTING TO DECREASE;RESPIRATIONS EVEN AND UNLABORED ON RA;IV SITE PATENT;WARM BLANKET PROVIDED PER REQUEST;PT ENCOURAGED TO CALL FOR ASSISTANCE IF NEEDED;CALL LIGHT IN REACH;WILL CONTINUE TO MONITOR
[2021-02-16 14:05] VITALS: BP 155/86
--- NOTE | 2021-02-16 15:45 | NUR ---
PT APPEARS TO BE SLEEPING ON STOMACH;RESPIRATIONS EVEN AND UNLABORED ON RA;NO S/S OF DISTRESS NOTED;IV FLUIDS INFUSING WITH EASE PER ORDER;ALL SAFETY PRECAUTIONS REMAIN IN PLACE WITH BED IN THE LOWEST POSITION AND CALL LIGHT IN REACH;WILL CONTINUE TO MONITOR
--- NOTE | 2021-02-16 17:00 | NUR ---
PT SLEEPING ON STOMACH, WAKES EASILY TO VERBAL STIMULI;RESPIRATIONS EVEN AND UNLABORED ON RA;PT REPORTS PRN ZOFRAN AND X1 MORPHINE TO BE EFFECTIVE IN PAIN/NAUSEA CONTROL;IV FLUIDS CONTINUE TO INFUSE TO RW.#2OG TO LW REMAINS PATENT;ACCUCHECK 192,PT REFUSES SCHEDULED INSULIN AT THIS TIME;PT DENIES ANY ADDITIONAL NEEDS;CALL LIGHT IN REACH;WILL CONTINUE TO MONITOR
[2021-02-16 20:12] VITALS: BP 154/85
--- NOTE | 2021-02-17 00:58 | NUR ---
PT RESTING IN BED WITH EYES CLOSED, C/O PAIN AND NAUSEA, ADMINSTERED TYLENOL AND PHNERGAN PER ORDER. IV SITE REMAINS IN PLACE, NO S/S OF INFILTRATION OR INFECTION NOTED. BREATHING EVEN AND UNLABORED. NO VOMITTING NOTED. PT REFUSED HER NIGHT TIME INSULIN, STATING, "MY SUGARS ARE NOT HIGH EBNOUGH FOR INSULIN" I ADVISED PT THAT HER HGBA1C LEVELS WERE VERY HIGH AND SHE SHOULD BE TAKING THE INSULIN PRESCRIBED, PT REFUSED AGAIN. INSTRUCTED THE PT THAT HIGHER THAN NORMAL BLOOD SUGARS CAN AFFECT THE KIDNEYS AND HER EYESIGHT. PT VERBALIZED UNDERSTANDING. SAFETY PRECAUTIONS IN PLACE. WILL CONTINUE TO MONITOR
--- NOTE | 2021-02-17 01:31 | NUR ---
PT RESTING QUIETLY NO COMPLAINTS ABOUT N/V. SAFETY PRECAUTIONS IN PLACE. WILL MONITOR
[2021-02-17 05:09] LABS: MEAN CELL VOLUME 83.7 fL CALC (80.0-100.0); MEAN CORPUSCULAR HGB CONC 35.9 g/dL CAL (32.0-36.0); RED BLOOD COUNT 4.66 mill/uL (4.20-5.60); RED CELL DISTRI WIDTH 11.7 % (11.5-15.5)
[2021-02-17 05:10] VITALS: BP 128/86
[2021-02-17 05:11] LABS: ANION GAP 11 (6-22 (CALC)); BUN 10 mg/dL (7-17); BUN/CREATININE RATIO 19 (12-20 (CALC)); CARBON DIOXIDE 27 mmol/l (22-30); CHLORIDE 102 mmol/l (95-108); CREATININE 0.5 mg/dL (0.5-1.0); GFR > 60 ML/MIN (>=60 (CALC)); GFR FOR AFR.AMER. > 60 ML/MIN (>=60 (CALC)); MAGNESIUM 1.7 mg/dL (1.6-2.3); SODIUM 136 mmol/l (137-146)
--- NOTE | 2021-02-17 05:31 | NUR ---
PT RESTING QUIETLY IN BED WITH EYES CLOSED. NO COMPLAINTS VOICED. NO NAUSEA OR VOMITTING REPORTED. SAFETY PRECAUTIONS IN PLACE. WILL CONTINUE TO MONITOR
[2021-02-17 07:34] VITALS: BP 136/87
--- NOTE | 2021-02-17 07:34 | NUR ---
PT RESTING IN SEMI FOLWERS POSITION. PT IS A/O X3. ASSESSMENT AND VITALS COMPLETED. BP 136/87, HR 68, O2 97% ON ROOM AIR. RESIRATIONS ARE EVEN AND UNLABORED WITH NO DISTRESS NOTED. LUNG SOUNDS ARE CLEAR. HEART RHYTHM NORMAL. BOWEL SOUNDS ARE ACTIVE. RADIAL AND PEDAL PULSES STRONG. #20G LW FLUSHED, SITE APPEARS HEALTHY AND PATENT. #22G RW INFUSING WITH IVF PER ORDER, SITE REMAINS HEALTHY AND PATENT. SKIN INTACT. PT DENIES OF ANY NEEDS AT THIS TIME. ALL SAFETY PRECAUTIONS ARE IN PLACE WITH CALL LIGHT IN REACH. WILL CONTINUE TO MONITOR.
[2021-02-17 08:25] VITALS: BP 136/87
--- NOTE | 2021-02-17 08:48 | NUR ---
DR HOOPER AT BEDSIDE
[2021-02-17] MEDS ORDERED: ZOFRAN4 MG/TAB PO (08:56)
[2021-02-17] MEDS ORDERED: METRONIDAZOL500 MG PO (08:56)
--- NOTE | 2021-02-17 12:01 | NUR ---
PT EDUCATED ON DC INSTRUCTIONS AND NEW MEDICATIONS. PT VERBALZIED UNDERSTANDING. IV ANTIBIOTICS INFUSING AT THIS TIME. SITE APPEARS HEALTHY AND PATENT.#20G EMS LW REMOVED WITH CATAHTER STILL INTACT. PT DENIES OF ANY NEEDS AT THIS TIME. ALL SAFETY PRECAUTIONS ARE IN PLACE WITH CALL LIGHT IN REACH. WILL CONTINUE TO MONITOR.
--- NOTE | 2021-02-17 13:18 | NUR ---
Discharge instructions given. Patient verbalizes understanding of same. Discharged in stable condition via Wheelchair to Home with staff. All belongings sent with pt. PT DC HOME IN STABLE CONDITION ACCOMPAINED BY SUDARSHAN HERNANDEZ VIA WHEELCHAIR. PT DC HOME WITH ALL DC INSTRUCTIONS, HOME MEDICATIONS AND BELONGINGS.
== END 2021-02-17 13:18 | disposition home or self-care (01) | DRG 394 ==
LOC: ED 22:44 → ED-I 02-14 01:38 → ED 02-14 01:48 → MS2 02-14 01:49
PROVIDERS: Family Medicine; Nurse Practitioner Family; ADMIT Internal Medicine; ATTEND Internal Medicine
DX: R11.15 Cyclical vomiting syndrome unrelated to migraine (principal); I43 Cardiomyopathy in diseases classified elsewhere; F12.988 Cannabis use, unspecified with other cannabis-induced disorder; A08.4 Viral intestinal infection, unspecified; E11.65 Type 2 diabetes mellitus with hyperglycemia; I11.0 Hypertensive heart disease with heart failure; I50.9 Heart failure, unspecified; E87.6 Hypokalemia; E86.0 Dehydration; K20.90 Esophagitis, unspecified without bleeding; K80.20 Calculus of gallbladder without cholecystitis without obstruction; Z20.822 Contact with and (suspected) exposure to COVID-19; Z79.84 Long term (current) use of oral hypoglycemic drugs; Z95.810 Presence of automatic (implantable) cardiac defibrillator
CPT/HCPCS: J1650; Q9967; S0164